=== PATIENT | male | born 1980 | race Caucasian/White ===

== ENCOUNTER 2017-11-08 12:57 | Emergency (ER) | payer OTHER ==
[~2017-11-08] VITALS: Ht 182.9 cm; Wt 90.7 kg
[~2017-11-08 12:57] MED LIST: ACET325 PO; ACET500 PO; ALBU90OI; ALBU90OI INH; ALBU90OI6 INH; ALBU90OI61 INH; BENZ100A PO; Budeprion Sr150 MG PO; CEFU250 PO; CEPH500 PO; CLIN150 PO; CLIN300; CLIN300 PO; CLOM50A; CLON2; CRUTCH3 USE; CYCL10 PO; DIAZ10 PO; DIAZ5 PO; DOXY100 PO; ERYT.5TO LEFTEYE; ERYT500 PO; FLUC150A PO; FLUO10; GABA300 PO; GLIP10ER; GLIP5ER; GLYB5 PO; HYDACE5 PO; HYDHCL10 PO; IBUP200 PO; IBUP400 PO; IBUP600 PO; IBUP800 PO; INSUASPI SC; INSULANPEN SC; LAMO25; LAVAP17G PO; LIDO5TP TOP; LISI10; LISI20 PO; LISI5 PO; LITH300C PO; Lotrimin Ultra12 GM EXT; MECL12.5 PO; META800 PO; METF500; METF500 PO; METF500C PO; METH10; METH5; NAPR500 PO; NAPR550 PO; Norco 5-325 Ta1 EACH PO; OMEP20ER; OXYACE5T PO; OXYC5; PALI3TAB PO; PALI6TA PO; PARO20; PRED10 PO; PRED20 PO; PROC10; PROC5 PO; PROM25 PO; Prinivil10 MG PO; QUET100; QUET200 PO; ROPI.25 PO; RXCLIN PO; RXCODGUASY PO; Robaxin500 MG PO; SUBOXONE 8 MG-1 EACH SL; SULTRIDS PO; SYMBYAX; TRAM50 PO; ZIPR40
[2017-11-08] MEDS ORDERED: IBUP600 PO (14:50)
== END 2017-11-08 15:00 | disposition home or self-care (01) ==
LOC: ER 12:57
DX: M25.512 Pain in left shoulder (principal); Z88.0 Allergy status to penicillin; Z88.8 Allergy status to other drugs, medicaments and biological substances; Z88.5 Allergy status to narcotic agent; Z79.899 Other long term (current) drug therapy; Z79.4 Long term (current) use of insulin; F32.9 Major depressive disorder, single episode, unspecified; F31.9 Bipolar disorder, unspecified; E11.9 Type 2 diabetes mellitus without complications; I10 Essential (primary) hypertension; F17.200 Nicotine dependence, unspecified, uncomplicated
CPT/HCPCS: 99282

== ENCOUNTER 2017-11-17 12:11 | Emergency (ER) | payer OTHER ==
[~2017-11-17] VITALS: Ht 185.4 cm; Wt 90.7 kg
[2017-11-17] MEDS ORDERED: IBUP600 PO (13:04)
== END 2017-11-17 13:09 | disposition home or self-care (01) ==
LOC: ER 12:11
DX: S83.92XA Sprain of unspecified site of left knee, initial encounter (principal); V89.2XXA Person injured in unspecified motor-vehicle accident, traffic, initial encounter; Z88.0 Allergy status to penicillin; Z88.8 Allergy status to other drugs, medicaments and biological substances; Z88.5 Allergy status to narcotic agent; Z79.899 Other long term (current) drug therapy; Z79.4 Long term (current) use of insulin; F32.9 Major depressive disorder, single episode, unspecified; F31.81 Bipolar II disorder; E11.9 Type 2 diabetes mellitus without complications; I10 Essential (primary) hypertension; F17.200 Nicotine dependence, unspecified, uncomplicated
CPT/HCPCS: 73564; 99283

== ENCOUNTER 2017-12-15 23:36 | Emergency (ER) | payer OTHER ==
[~2017-12-15] VITALS: Ht 182.9 cm; Wt 88.5 kg
[2017-12-15] MEDS ORDERED: METF500 PO (23:55)
[2017-12-16] MEDS ORDERED: Bactrim Ds Tab1 EACH PO (01:05)
[2017-12-16] MEDS ORDERED: IBUP800 PO (01:05)
== END 2017-12-16 01:31 | disposition home or self-care (01) ==
LOC: ER 23:36
DX: S61.411A Laceration without foreign body of right hand, initial encounter (principal); W26.8XXA Contact with other sharp object(s), not elsewhere classified, initial encounter; Z88.0 Allergy status to penicillin; Z88.8 Allergy status to other drugs, medicaments and biological substances; Z88.5 Allergy status to narcotic agent; Z79.899 Other long term (current) drug therapy; Z79.84 Long term (current) use of oral hypoglycemic drugs; F32.9 Major depressive disorder, single episode, unspecified; F31.9 Bipolar disorder, unspecified; E11.9 Type 2 diabetes mellitus without complications; I10 Essential (primary) hypertension; F17.210 Nicotine dependence, cigarettes, uncomplicated
CPT/HCPCS: 73100; 73130; 90714

== ENCOUNTER 2018-02-16 13:32 | Emergency (ER) | payer OTHER ==
[~2018-02-16] VITALS: Ht 182.9 cm; Wt 93.0 kg
[~2018-02-16 13:32] MED LIST changes: +Bactrim Ds Tab1 EACH PO
[2018-02-16] MEDS ORDERED: METH40 PO (13:36)
[2018-02-16] MEDS ORDERED: IBUP800 PO (13:51)
== END 2018-02-16 14:16 | disposition home or self-care (01) ==
LOC: ER 13:32
DX: S90.822A Blister (nonthermal), left foot, initial encounter (principal); S90.821A Blister (nonthermal), right foot, initial encounter; X58.XXXA Exposure to other specified factors, initial encounter; Z88.0 Allergy status to penicillin; Z88.8 Allergy status to other drugs, medicaments and biological substances; Z88.5 Allergy status to narcotic agent; F32.9 Major depressive disorder, single episode, unspecified; F31.9 Bipolar disorder, unspecified; E11.9 Type 2 diabetes mellitus without complications; I10 Essential (primary) hypertension; Z79.84 Long term (current) use of oral hypoglycemic drugs; Z79.899 Other long term (current) drug therapy; F17.210 Nicotine dependence, cigarettes, uncomplicated
CPT/HCPCS: 99283

== ENCOUNTER 2018-03-08 19:10 | Emergency (ER) | payer OTHER ==
[~2018-03-08] VITALS: Ht 182.9 cm; Wt 93.0 kg
[~2018-03-08 19:10] MED LIST changes: +METH40 PO
[2018-03-08] MEDS ORDERED: LIDO700A20 TOP (20:20)
== END 2018-03-08 20:30 | disposition home or self-care (01) ==
LOC: ER 19:10
DX: L84 Corns and callosities (principal); E11.9 Type 2 diabetes mellitus without complications; Z88.0 Allergy status to penicillin; Z88.8 Allergy status to other drugs, medicaments and biological substances; Z88.5 Allergy status to narcotic agent; Z79.899 Other long term (current) drug therapy; F32.9 Major depressive disorder, single episode, unspecified; F31.9 Bipolar disorder, unspecified; F17.210 Nicotine dependence, cigarettes, uncomplicated
CPT/HCPCS: 99283

== ENCOUNTER → 2018-09-09 | Outpatient (CLI) | payer OTHER ==
[~2018-09-09] MED LIST changes: +Doxycycline Hy100 MG PO; +LIDO700A20 TOP
[2018-09-09 17:09] LABS: U Amphetamine Screen Not Detected; U Barbituate Screen Not Detected; U Benzodiazapine Screen Not Detected; U Buprenorphine Screen Not Detected; U Cannabinoids Screen Not Detected; U Cocaine Screen Not Detected; U Methadone Screen DETECTED; U Methamphetamine Screen Not Detected; U Opiates Screen Not Detected; U Oxycodone Screen Not Detected; U Phencyclidine Screen Not Detected; U Propoxyphene Screen Not Detected
== END | disposition home or self-care (01) ==
LOC: LAB SHORT 15:35 → LAB 15:35
PROVIDERS: Psychiatry & Neurology Psychiatry
DX: Z51.81 Encounter for therapeutic drug level monitoring (principal); Z79.899 Other long term (current) drug therapy

== ENCOUNTER 2018-09-18 15:15 | Emergency (ER) | payer OTHER ==
[~2018-09-18] VITALS: Ht 182.9 cm; Wt 108.9 kg
== END 2018-09-18 17:55 | disposition home or self-care (01) ==
LOC: ER 15:15
DX: J02.9 Acute pharyngitis, unspecified (principal); Z88.0 Allergy status to penicillin; Z88.8 Allergy status to other drugs, medicaments and biological substances; Z88.5 Allergy status to narcotic agent; Z79.899 Other long term (current) drug therapy; F31.9 Bipolar disorder, unspecified; E11.9 Type 2 diabetes mellitus without complications; F17.210 Nicotine dependence, cigarettes, uncomplicated
CPT/HCPCS: 87081; 87430; 99282

== ENCOUNTER 2018-10-06 16:33 | Observation (INO) | payer OTHER ==
[~2018-10-06] VITALS: Ht 182.9 cm; Wt 105.0 kg
[~2018-10-06 16:33] MED LIST changes: -AMPDEX10 PO; -ATOM10 PO; -Methadone In10 MG/ML PO
[2018-10-06] MEDS ORDERED: Methadone In10 MG/ML PO (20:18)
[2018-10-06] MEDS ORDERED: ATOM10 PO (20:19)
[2018-10-06 20:54] LABS: Albumin, Blood 3.4 g/dL (3.4-5.0); Albumin/Globulin Ratio 0.8 (0.8-1.8); Bilirubin, Direct 0.1 mg/dL (0.0-0.3); Bilirubin, Indirect 0.4 mg/dL (0.1-0.7); Bilirubin, Total 0.5 mg/dL (0.1-1.0); Globulin, Blood 4.3 g/dL (2.2-4.0); Total Protein, Blood 7.7 g/dL (6.4-8.2)
[2018-10-06] MEDS ORDERED: AMPDEX10 PO (21:56)
--- NOTE | 2018-10-06 22:30 | NUR ---
2230 ADMIT: PT ARRIVES TO ROOM 219 VIA WC FROM ER ACCOMPANIED BY SON AND TRANSFERS SELF TO BED; PT STEADY ON FEET, DENIES INCREASED PAIN WITH MOVEMENT. PT AND SON ORIENTED TO ROOM, CALL SYSTEM AND SAFETY PRECAUTIONS AND VERBALIZE UNDERSTANDING. CALL LIGHT PLACED IN REACH, PT UP IN ROOM AND BRP.
--- NOTE | 2018-10-06 23:20 | NUR ---
2320: PT OUT TO SMOKE WITH FAMILY, DENIES PAIN, N/V.
--- NOTE | 2018-10-07 11:20 | NUR ---
85 mg METHADONE ORDERED, RECD IN 9 TABS OF 10MG. 5 MG WASTED WITH MONICA KO.
--- NOTE | 2018-10-07 18:23 | NUR ---
SHIFT SUMMARY PATIENT W/O C/O PAIN THIS AFTERNOON. TOLERATED REG DIET FOR LUNCH. FAMILY BROUGHT IN SAUSAGE SANDWICH LATER, WHICH PATIENT TOOK, THEN C/O NAUSEA. ZOFRAN ADM AND NAUSEA RESOLVED. SPOKE W/PATIENT RE: DIET CHOICES. OUT TO SMOKE A FEW TIMES THIS SHIFT. PATIENT TO BE NPO AFTER 2400 FOR NUC MED. NO ACUTE CHANGES.
[2018-10-08 05:30] LABS: BASOPHILS ABSOLUTE AUTO 0.03 K/mm3 (0.00-0.23); BASOPHILS PERCENT AUTO 1 % (0-2); EOSINOPHILS ABSOLUTE AUTO 0.28 K/mm3 (0.00-0.68); EOSINOPHILS PERCENT AUTO 5 % (0-6); Hemoglobin 13.3 g/dL (13.5-17.5); IMMATURE GRAN ABSOLUTE AUTO 0.02 K/mm3 (0.00-0.10); IMMATURE GRAN PERCENT AUTO 0 % (0-1); LYMPHOCYTES PERCENT AUTO 32 % (21-46); MONOCYTES ABSOLUTE AUTO 0.98 K/mm3 (0.16-1.47); MONOCYTES PERCENT AUTO 16 % (4-13); Mean Corpuscular HGB 30.2 pg (26.0-34.0); Mean Corpuscular HGB Conc 31.7 g/dL (31.5-36.5); Mean Platelet Volume 10.9 fL (9.1-12.4); NEUTROPHILS ABSOLUTE AUTO 2.81 K/mm3 (1.96-9.15); NEUTROPHILS PERCENT AUTO 47 % (41-73); Platelet Count 192 K/mm3 (150-400); RDW Coefficient Variation 11.9 % (11.7-14.2); RDW Standard Deviation 41.4 fL (35.1-46.3); Red Blood Cell Count 4.41 M/mm3 (4.30-5.90); White Blood Cell Count 6.02 K/mm3 (4.00-11.30)
[2018-10-08 05:34] LABS: Mean Corpuscular Volume 95 fL (80-100)
[2018-10-08 06:14] LABS: Alanine Aminotransfer (ALT/SGP 42 U/L (12-78); Albumin, Blood 2.9 g/dL (3.4-5.0); Albumin/Globulin Ratio 0.8 (0.8-1.8); Alk Phos 61 U/L (50-136); Anion Gap 6 mmol/L (6-16); Aspartate Aminotrans (AST/SGOT 23 U/L (12-37); Bilirubin, Total 0.5 mg/dL (0.1-1.0); Blood Urea Nitrogen 9 mg/dL (8-24); Bun/Creatinine Ratio 12.6 (12.0-20.0); CO2, Blood 24 mmol/L (21-32); Calcium, Blood 8.2 mg/dL (8.5-10.1); Chloride, Blood 112 mmol/L (98-108); Creatinine, Blood 0.72 mg/dL (0.60-1.20); Globulin, Blood 3.8 g/dL (2.2-4.0); Glomerular Filtration Rate >60 (60-); Glucose, Blood 134 mg/dL (70-99); Potassium, Blood 3.9 mmol/L (3.5-5.5); Sodium, Blood 142 mmol/L (136-145); Total Protein, Blood 6.7 g/dL (6.4-8.2)
--- NOTE | 2018-10-08 07:00 | NUR ---
SUMMARY: ADMIT DAY [address] SPANN. NO ACUTE CHANGES THIS SHIFT, VSS, AFEBRILE. PAIN WELL CONTROLLED WITH 1 MG DILAUDID AND 2 TABS TYLENOL EARLY IN SHIFT. NPO AFTER MIDNIGHT, NO NARCOTICS AFTER 0300. PT SLEPT WELL MOST OF SHIFT, OUT TO SMOKE SEVERAL TIMES. ANTICIPATE HYDASCAN AT 1000. DR. SPANN ROUNDS EARLY ON PT THIS AM.
--- NOTE | 2018-10-08 15:34 | NUR ---
DISCHARGE PT PROVIDED WITH WRITTEN AND VERBAL DISCHARGE INSTRUCTIONS. PT REPORTED UNDERSTANDING. VSS. PT AMBULATED OUTSIDE INDEPEDENTLY.
== END 2018-10-08 15:30 | disposition home or self-care (01) ==
LOC: ER 16:33 → SURS 16:34 → ER 21:20 → SURS 21:20
PROVIDERS: Emergency Medicine; ADMIT Surgery
DX: R10.11 Right upper quadrant pain (principal); F11.20 Opioid dependence, uncomplicated; F31.9 Bipolar disorder, unspecified; F90.9 Attention-deficit hyperactivity disorder, unspecified type; F17.210 Nicotine dependence, cigarettes, uncomplicated; Z86.19 Personal history of other infectious and parasitic diseases; Z23 Encounter for immunization
CPT/HCPCS: 36415; 76705; 78226; 80053; 80076; 83690; 85025; 90686; 96365; 96366; 96375; 96376; 99285-25; A9537; G0008; G0378; J0696; J1170; J2405; J2550; J7030

== ENCOUNTER → 2018-10-06 | Outpatient (CLI) | payer OTHER ==
[~2018-10-06] MED LIST changes: +AMPDEX10 PO; +ATOM10 PO; +Metformin HCl500 MG PO; +Methadone In10 MG/ML PO
[2018-10-06 14:16] LABS: BASOPHILS ABSOLUTE AUTO 0.03 K/mm3 (0.00-0.23); BASOPHILS PERCENT AUTO 0 % (0-2); EOSINOPHILS ABSOLUTE AUTO 0.01 K/mm3 (0.00-0.68); EOSINOPHILS PERCENT AUTO 0 % (0-6); Hematocrit 45.3 % (37.0-53.0); Hemoglobin 15.1 g/dL (13.5-17.5); IMMATURE GRAN ABSOLUTE AUTO 0.05 K/mm3 (0.00-0.10); IMMATURE GRAN PERCENT AUTO 0 % (0-1); LYMPHOCYTES ABSOLUTE AUTO 1.04 K/mm3 (0.84-5.20); LYMPHOCYTES PERCENT AUTO 9 % (21-46); MONOCYTES ABSOLUTE AUTO 1.03 K/mm3 (0.16-1.47); MONOCYTES PERCENT AUTO 9 % (4-13); Mean Corpuscular HGB 30.2 pg (26.0-34.0); Mean Corpuscular HGB Conc 33.3 g/dL (31.5-36.5); Mean Corpuscular Volume 91 fL (80-100); NEUTROPHILS PERCENT AUTO 82 % (41-73); Platelet Count 224 K/mm3 (150-400); RDW Coefficient Variation 12.1 % (11.7-14.2); RDW Standard Deviation 39.8 fL (35.1-46.3); White Blood Cell Count 12.16 K/mm3 (4.00-11.30)
[2018-10-06 15:12] LABS: Anion Gap 3 mmol/L (6-16); Blood Urea Nitrogen 14 mg/dL (8-24); Bun/Creatinine Ratio 16.4 (12.0-20.0); CO2, Blood 27 mmol/L (21-32); Calcium, Blood 8.5 mg/dL (8.5-10.1); Chloride, Blood 106 mmol/L (98-108); Creatinine, Blood 0.85 mg/dL (0.60-1.20); Glomerular Filtration Rate >60 (60-); Glucose, Blood 82 mg/dL (70-99); Potassium, Blood 4.1 mmol/L (3.5-5.5); Sodium, Blood 136 mmol/L (136-145)
== END | disposition home or self-care (01) ==
LOC: LAB SHORT 14:01 → LAB EV 14:01
PROVIDERS: Physician Assistant Surgical
DX: R10.31 Right lower quadrant pain (principal)
CPT/HCPCS: 80048; 85025

== ENCOUNTER 2018-12-08 12:01 | Emergency (ER) | payer OTHER ==
[~2018-12-08] VITALS: Ht 182.9 cm; Wt 104.3 kg
[~2018-12-08 12:01] MED LIST changes: +AMPDEX10 PO; +ATOM10 PO; +Keflex500 MG PO; +Methadone In10 MG/ML PO
== END 2018-12-08 14:14 | disposition home or self-care (01) ==
LOC: ER 12:01
DX: L03.011 Cellulitis of right finger (principal); F31.9 Bipolar disorder, unspecified; E11.9 Type 2 diabetes mellitus without complications; I10 Essential (primary) hypertension; F17.200 Nicotine dependence, unspecified, uncomplicated; Z88.0 Allergy status to penicillin; Z88.5 Allergy status to narcotic agent; Z88.8 Allergy status to other drugs, medicaments and biological substances; Z79.899 Other long term (current) drug therapy; Z86.19 Personal history of other infectious and parasitic diseases
CPT/HCPCS: 26010; 99283-25

== ENCOUNTER 2019-05-25 10:25 | Emergency (ER) | payer OTHER ==
[~2019-05-25] VITALS: Ht 182.9 cm; Wt 106.6 kg
[~2019-05-25 10:25] MED LIST changes: +Vibramycin100 MG PO
== END 2019-05-25 11:07 | disposition home or self-care (01) ==
LOC: ER 10:25
DX: K40.90 Unilateral inguinal hernia, without obstruction or gangrene, not specified as recurrent (principal); E11.9 Type 2 diabetes mellitus without complications; I10 Essential (primary) hypertension; F17.210 Nicotine dependence, cigarettes, uncomplicated; Z88.0 Allergy status to penicillin; Z88.8 Allergy status to other drugs, medicaments and biological substances; Z88.5 Allergy status to narcotic agent; Z79.899 Other long term (current) drug therapy; Z79.84 Long term (current) use of oral hypoglycemic drugs; Z79.891 Long term (current) use of opiate analgesic
CPT/HCPCS: 99283

== ENCOUNTER → 2019-07-17 | Outpatient (CLI) | payer OTHER ==
[2019-07-17 19:05] LABS: U Amphetamine Screen DETECTED; U Barbituate Screen Not Detected; U Benzodiazapine Screen Not Detected; U Buprenorphine Screen Not Detected; U Cannabinoids Screen DETECTED; U Cocaine Screen Not Detected; U Methadone Screen DETECTED; U Methamphetamine Screen Not Detected; U Opiates Screen Not Detected; U Oxycodone Screen Not Detected; U Phencyclidine Screen Not Detected; U Propoxyphene Screen Not Detected
[2019-07-24 01:06] LABS: TRICYCLIC ANTIDEP Negative ng/mL (Cutoff=100)
== END | disposition home or self-care (01) ==
LOC: LAB SHORT 11:42 → LAB 11:42
PROVIDERS: Psychiatry & Neurology Psychiatry
DX: Z51.81 Encounter for therapeutic drug level monitoring (principal); Z79.899 Other long term (current) drug therapy
CPT/HCPCS: G0480; G0481

== ENCOUNTER → 2019-09-19 | Outpatient (CLI) | payer OTHER ==
[2019-09-19 12:13] LABS: BASOPHILS ABSOLUTE AUTO 0.04 K/mm3 (0.00-0.23); BASOPHILS PERCENT AUTO 1 % (0-2); EOSINOPHILS ABSOLUTE AUTO 0.23 K/mm3 (0.00-0.68); EOSINOPHILS PERCENT AUTO 4 % (0-6); Hematocrit 46.5 % (37.0-53.0); Hemoglobin 15.7 g/dL (13.5-17.5); IMMATURE GRAN ABSOLUTE AUTO 0.01 K/mm3 (0.00-0.10); IMMATURE GRAN PERCENT AUTO 0 % (0-1); LYMPHOCYTES ABSOLUTE AUTO 2.45 K/mm3 (0.84-5.20); LYMPHOCYTES PERCENT AUTO 41 % (21-46); MONOCYTES ABSOLUTE AUTO 0.57 K/mm3 (0.16-1.47); MONOCYTES PERCENT AUTO 10 % (4-13); Mean Corpuscular HGB 30.4 pg (26.0-34.0); Mean Corpuscular HGB Conc 33.8 g/dL (31.5-36.5); Mean Corpuscular Volume 90 fL (80-100); Mean Platelet Volume 10.7 fL (9.1-12.4); NEUTROPHILS ABSOLUTE AUTO 2.67 K/mm3 (1.96-9.15); NEUTROPHILS PERCENT AUTO 45 % (41-73); Platelet Count 236 K/mm3 (150-400); RDW Coefficient Variation 12.2 % (11.7-14.2); Red Blood Cell Count 5.16 M/mm3 (4.30-5.90); White Blood Cell Count 5.97 K/mm3 (4.00-11.30)
[2019-09-19 12:25] LABS: Alanine Aminotransfer (ALT/SGP 24 U/L (12-78); Albumin, Blood 4.2 g/dL (3.4-5.0); Albumin/Globulin Ratio 1.2 (0.8-1.8); Alk Phos 75 U/L (40-126); Anion Gap 8 mmol/L (6-16); Aspartate Aminotrans (AST/SGOT 21 U/L (12-37); Bilirubin, Total 0.4 mg/dL (0.1-1.0); Blood Urea Nitrogen 7 mg/dL (8-24); Bun/Creatinine Ratio 7.7 (12.0-20.0); CO2, Blood 26 mmol/L (21-32); Calcium, Blood 8.9 mg/dL (8.5-10.1); Chloride, Blood 104 mmol/L (98-108); Creatinine, Blood 0.91 mg/dL (0.60-1.20); Globulin, Blood 3.4 g/dL (2.2-4.0); Glomerular Filtration Rate >60 (60-); Glucose, Blood 124 mg/dL (70-99); Potassium, Blood 4.5 mmol/L (3.5-5.5); Sodium, Blood 138 mmol/L (136-145); Total Protein, Blood 7.6 g/dL (6.4-8.2)
== END | disposition home or self-care (01) ==
LOC: LAB EV 12:09 → LAB SHORT 12:09
PROVIDERS: Physician Assistant Medical
DX: R10.30 Lower abdominal pain, unspecified (principal)
CPT/HCPCS: 80053; 85025

== ENCOUNTER 2020-03-16 14:27 | Emergency (ER) | payer OTHER ==
[~2020-03-16] VITALS: Ht 182.9 cm; Wt 109.8 kg
[~2020-03-16 14:27] MED LIST changes: +Augmentin 875-1 EACH PO
[2020-03-16 15:02] LABS: BASOPHILS ABSOLUTE AUTO 0.04 K/mm3 (0.00-0.23); BASOPHILS PERCENT AUTO 1 % (0-2); EOSINOPHILS ABSOLUTE AUTO 0.25 K/mm3 (0.00-0.68); EOSINOPHILS PERCENT AUTO 3 % (0-6); Hematocrit 51.4 % (37.0-53.0); Hemoglobin 16.8 g/dL (13.5-17.5); IMMATURE GRAN ABSOLUTE AUTO 0.02 K/mm3 (0.00-0.10); IMMATURE GRAN PERCENT AUTO 0 % (0-1); LYMPHOCYTES ABSOLUTE AUTO 3.23 K/mm3 (0.84-5.20); LYMPHOCYTES PERCENT AUTO 41 % (21-46); MONOCYTES ABSOLUTE AUTO 0.87 K/mm3 (0.16-1.47); MONOCYTES PERCENT AUTO 11 % (4-13); Mean Corpuscular HGB 29.8 pg (26.0-34.0); Mean Corpuscular HGB Conc 32.7 g/dL (31.5-36.5); Mean Corpuscular Volume 91 fL (80-100); Mean Platelet Volume 11.9 fL (9.1-12.4); NEUTROPHILS ABSOLUTE AUTO 3.43 K/mm3 (1.96-9.15); NEUTROPHILS PERCENT AUTO 44 % (41-73); Platelet Count 245 K/mm3 (150-400); RDW Coefficient Variation 12.2 % (11.7-14.2); RDW Standard Deviation 41.1 fL (35.1-46.3); Red Blood Cell Count 5.63 M/mm3 (4.30-5.90); White Blood Cell Count 7.84 K/mm3 (4.00-11.30)
[2020-03-16 15:18] LABS: Alanine Aminotransfer (ALT/SGP 33 U/L (12-78); Albumin, Blood 4.3 g/dL (3.4-5.0); Albumin/Globulin Ratio 1.2 (0.8-1.8); Alk Phos 73 U/L (50-136); Anion Gap 7 mmol/L (6-16); Aspartate Aminotrans (AST/SGOT 22 U/L (12-37); Bilirubin, Total 0.6 mg/dL (0.1-1.0); Blood Urea Nitrogen 12 mg/dL (8-24); Bun/Creatinine Ratio 11.1 (12.0-20.0); CO2, Blood 24 mmol/L (21-32); Calcium, Blood 9.2 mg/dL (8.5-10.1); Chloride, Blood 109 mmol/L (98-108); Creatinine, Blood 1.08 mg/dL (0.60-1.20); Globulin, Blood 3.7 g/dL (2.2-4.0); Glomerular Filtration Rate >60 (60-); Glucose, Blood 149 mg/dL (70-99); Potassium, Blood 4.1 mmol/L (3.5-5.5); Sodium, Blood 140 mmol/L (136-145)
[2020-03-16 15:26] LABS: Source, Urine Clean Catch
[2020-03-16 15:33] LABS: Bilirubin, Urine Neg (Neg); Blood, Urine 4+ (Neg); Glucose Qualitative, Urine Neg (Neg); Ketones, Urine Neg (Neg); Leukocyte Esterase, Urine 1+ (Neg); Nitrite, Urine Neg (Neg); Protein, Urine 1+ (Neg); Urobilinogen, Urine NORM (Normal)
[2020-03-16 15:36] LABS: Appearance, Urine Hazy (Clear); Color, Urine Yellow (P-Yellow)
[2020-03-16 15:42] LABS: Bacteria Mod /hpf; Mucus Mod (0-Heavy); Squamous Epithelial Cells Few /hpf (Few); Trichomonas Rare /hpf
[2020-03-16] MEDS ORDERED: ONDA4ODT MM (17:07)
[2020-03-16] MEDS ORDERED: Flagyl500 MG PO (17:07)
[2020-03-16] MEDS ORDERED: Percocet 5-3251 EACH PO (17:07)
== END 2020-03-16 17:16 | disposition home or self-care (01) ==
LOC: ER 14:27
PROVIDERS: Physician Assistant
DX: N20.0 Calculus of kidney (principal); A59.00 Urogenital trichomoniasis, unspecified; F31.81 Bipolar II disorder; I10 Essential (primary) hypertension; E11.9 Type 2 diabetes mellitus without complications; F17.210 Nicotine dependence, cigarettes, uncomplicated; Z88.0 Allergy status to penicillin; Z88.8 Allergy status to other drugs, medicaments and biological substances; Z88.5 Allergy status to narcotic agent; Z87.442 Personal history of urinary calculi; Z79.899 Other long term (current) drug therapy
CPT/HCPCS: 36415; 76770; 80053; 81001; 83690; 85025; 87086; 93005; 93010; 96361; 96374; 96375; 99284-25; A9270-GY; J1170; J1885; J2405

== ENCOUNTER 2020-06-05 06:27 | Emergency (ER) | payer OTHER ==
[~2020-06-05] VITALS: Ht 182.9 cm; Wt 111.1 kg
[~2020-06-05 06:27] MED LIST changes: +Flagyl500 MG PO; +ONDA4ODT MM; +Percocet 5-3251 EACH PO
[2020-06-05 07:04] LABS: BASOPHILS ABSOLUTE AUTO 0.06 K/mm3 (0.00-0.23); BASOPHILS PERCENT AUTO 1 % (0-2); EOSINOPHILS ABSOLUTE AUTO 0.21 K/mm3 (0.00-0.68); EOSINOPHILS PERCENT AUTO 3 % (0-6); Hematocrit 47.5 % (37.0-53.0); Hemoglobin 15.2 g/dL (13.5-17.5); IMMATURE GRAN ABSOLUTE AUTO 0.02 K/mm3 (0.00-0.10); IMMATURE GRAN PERCENT AUTO 0 % (0-1); LYMPHOCYTES ABSOLUTE AUTO 2.64 K/mm3 (0.84-5.20); LYMPHOCYTES PERCENT AUTO 36 % (21-46); MONOCYTES ABSOLUTE AUTO 0.87 K/mm3 (0.16-1.47); MONOCYTES PERCENT AUTO 12 % (4-13); Mean Corpuscular HGB 29.7 pg (26.0-34.0); Mean Corpuscular Volume 93 fL (80-100); Mean Platelet Volume 11.4 fL (9.1-12.4); NEUTROPHILS ABSOLUTE AUTO 3.54 K/mm3 (1.96-9.15); NEUTROPHILS PERCENT AUTO 48 % (41-73); Platelet Count 242 K/mm3 (150-400); RDW Coefficient Variation 12.4 % (11.7-14.2); RDW Standard Deviation 42.8 fL (35.1-46.3); Red Blood Cell Count 5.12 M/mm3 (4.30-5.90); White Blood Cell Count 7.34 K/mm3 (4.00-11.30)
[2020-06-05 07:07] LABS: Source, Urine Clean Catch
[2020-06-05 07:12] LABS: Appearance, Urine Clear (Clear); Bilirubin, Urine Neg (Neg); Blood, Urine 5+ (Neg); Color, Urine Yellow (P-Yellow); Glucose Qualitative, Urine 3+ (Neg); Ketones, Urine 1+ (Neg); Leukocyte Esterase, Urine 1+ (Neg); Nitrite, Urine Neg (Neg); Protein, Urine 2+ (Neg); Specific Gravity, Urine 1.025 (1.003-1.022); Urobilinogen, Urine NORM (Normal)
[2020-06-05 07:20] LABS: Alanine Aminotransfer (ALT/SGP 29 U/L (12-78); Albumin/Globulin Ratio 1.1 (0.8-1.8); Alk Phos 78 U/L (50-136); Anion Gap 7 mmol/L (6-16); Aspartate Aminotrans (AST/SGOT 17 U/L (12-37); Bilirubin, Total 0.3 mg/dL (0.1-1.0); Blood Urea Nitrogen 13 mg/dL (8-24); Bun/Creatinine Ratio 13.7 (12.0-20.0); CO2, Blood 26 mmol/L (21-32); Chloride, Blood 108 mmol/L (98-108); Creatinine, Blood 0.95 mg/dL (0.60-1.20); Globulin, Blood 3.5 g/dL (2.2-4.0); Glomerular Filtration Rate >60 (60-); Glucose, Blood 223 mg/dL (70-99); Potassium, Blood 3.8 mmol/L (3.5-5.5); Sodium, Blood 141 mmol/L (136-145); Total Protein, Blood 7.5 g/dL (6.4-8.2)
[2020-06-05] MEDS ORDERED: Flomax0.4 MG PO (07:21)
[2020-06-05 07:23] LABS: Bacteria Few /hpf; Mucus Mod (0-Heavy); Red Blood Cells, Urine TNTC /hpf (0-2); Squamous Epithelial Cells Rare /hpf (Few)
[2020-06-05 07:24] LABS: Calcium Oxalate Crystals Many /hpf
[2020-06-05] MEDS ORDERED: TAMS.4ER PO (09:09)
[2020-06-05] MEDS ORDERED: Percocet 5-3251 EACH PO (09:09)
== END 2020-06-05 09:29 | disposition home or self-care (01) ==
LOC: ER 06:27
PROVIDERS: Emergency Medicine
DX: N13.2 Hydronephrosis with renal and ureteral calculous obstruction (principal); R91.1 Solitary pulmonary nodule; F31.81 Bipolar II disorder; I10 Essential (primary) hypertension; E11.9 Type 2 diabetes mellitus without complications; F17.210 Nicotine dependence, cigarettes, uncomplicated; Z88.0 Allergy status to penicillin; Z88.8 Allergy status to other drugs, medicaments and biological substances; Z88.5 Allergy status to narcotic agent; Z79.899 Other long term (current) drug therapy
CPT/HCPCS: 36415; 74177; 80053; 81001; 83690; 85025; 87086; 96361; 96374; 96375; 99284-25; J1885; J2405; J3010; J7030; Q9967

== ENCOUNTER 2020-09-16 18:51 | Emergency (ER) | payer OTHER ==
[~2020-09-16] VITALS: Ht 182.9 cm; Wt 111.1 kg
[~2020-09-16 18:51] MED LIST changes: +Flomax0.4 MG PO; +TAMS.4ER PO
[2020-09-16] MEDS ORDERED: Percocet 5-3251 EACH PO (19:56)
[2020-09-16] MEDS ORDERED: PEPCID40 MG PO (19:57)
== END 2020-09-16 20:04 | disposition home or self-care (01) ==
LOC: ER 18:51
DX: K08.89 Other specified disorders of teeth and supporting structures (principal); E11.9 Type 2 diabetes mellitus without complications; I10 Essential (primary) hypertension; F17.210 Nicotine dependence, cigarettes, uncomplicated; Z79.899 Other long term (current) drug therapy; Z88.0 Allergy status to penicillin; Z88.8 Allergy status to other drugs, medicaments and biological substances; Z88.5 Allergy status to narcotic agent
CPT/HCPCS: 99282; A9270

== ENCOUNTER → 2020-10-15 | Outpatient (CLI) | payer OTHER ==
[~2020-10-15] MED LIST changes: +PEPCID40 MG PO
== END | disposition home or self-care (01) ==
LOC: LAB SHORT 12:30 → PLD 12:30
DX: N39.0 Urinary tract infection, site not specified (principal)
CPT/HCPCS: 87086

== ENCOUNTER → 2020-11-15 | Outpatient (CLI) | payer OTHER ==
[2020-11-15 17:58] LABS: BASOPHILS ABSOLUTE AUTO 0.07 K/mm3 (0.00-0.23); BASOPHILS PERCENT AUTO 1 % (0-2); EOSINOPHILS ABSOLUTE AUTO 0.29 K/mm3 (0.00-0.68); EOSINOPHILS PERCENT AUTO 4 % (0-6); Hematocrit 47.6 % (37.0-53.0); Hemoglobin 16.1 g/dL (13.5-17.5); IMMATURE GRAN ABSOLUTE AUTO 0.01 K/mm3 (0.00-0.10); IMMATURE GRAN PERCENT AUTO 0 % (0-1); LYMPHOCYTES ABSOLUTE AUTO 2.54 K/mm3 (0.84-5.20); LYMPHOCYTES PERCENT AUTO 31 % (21-46); MONOCYTES ABSOLUTE AUTO 0.69 K/mm3 (0.16-1.47); MONOCYTES PERCENT AUTO 8 % (4-13); Mean Corpuscular HGB 30.4 pg (26.0-34.0); Mean Corpuscular HGB Conc 33.8 g/dL (31.5-36.5); Mean Corpuscular Volume 90 fL (80-100); Mean Platelet Volume 11.3 fL (9.1-12.4); NEUTROPHILS ABSOLUTE AUTO 4.64 K/mm3 (1.96-9.15); NEUTROPHILS PERCENT AUTO 56 % (41-73); Platelet Count 243 K/mm3 (150-400); RDW Standard Deviation 42.7 fL (35.1-46.3); Red Blood Cell Count 5.29 M/mm3 (4.30-5.90); White Blood Cell Count 8.24 K/mm3 (4.00-11.30)
[2020-11-15 18:53] LABS: Alanine Aminotransfer (ALT/SGP 29 U/L (12-78); Albumin, Blood 3.9 g/dL (3.4-5.0); Alk Phos 81 U/L (50-136); Anion Gap 4 mmol/L (6-16); Aspartate Aminotrans (AST/SGOT 15 U/L (12-37); Bilirubin, Total 0.3 mg/dL (0.1-1.0); Blood Urea Nitrogen 10 mg/dL (8-24); Bun/Creatinine Ratio 10.1 (12.0-20.0); CO2, Blood 24 mmol/L (21-32); Chloride, Blood 109 mmol/L (98-108); Glomerular Filtration Rate >60 (60-); Glucose, Blood 130 mg/dL (70-99); Potassium, Blood 4.1 mmol/L (3.5-5.5); Sodium, Blood 137 mmol/L (136-145); Total Protein, Blood 7.9 g/dL (6.4-8.2)
[2020-11-17 01:06] LABS: CHLAMYDIA TRACHOMATIS, NAA Negative (Negative)
== END | disposition home or self-care (01) ==
LOC: LAB EV 17:53 → LAB SHORT 17:53
PROVIDERS: Chiropractor
DX: R10.9 Unspecified abdominal pain (principal)
CPT/HCPCS: 80053; 85025; 87086; 87491; 87591

== ENCOUNTER 2021-03-31 11:07 | Emergency (ER) | payer OTHER ==
[~2021-03-31] VITALS: Ht 182.9 cm; Wt 102.1 kg
== END 2021-03-31 11:46 | disposition home or self-care (01) ==
LOC: ER 11:07
DX: R51.9 Headache, unspecified (principal); I10 Essential (primary) hypertension; E11.9 Type 2 diabetes mellitus without complications; F17.210 Nicotine dependence, cigarettes, uncomplicated; Z20.822 Contact with and (suspected) exposure to COVID-19; Z88.0 Allergy status to penicillin; Z88.8 Allergy status to other drugs, medicaments and biological substances; Z88.5 Allergy status to narcotic agent; Z79.899 Other long term (current) drug therapy
CPT/HCPCS: 99282

== ENCOUNTER 2021-04-23 18:29 | Emergency (ER) | payer OTHER ==
[~2021-04-23] VITALS: Ht 182.9 cm; Wt 108.9 kg
[2021-04-23 19:01] LABS: BASOPHILS ABSOLUTE AUTO 0.04 K/mm3 (0.00-0.23); BASOPHILS PERCENT AUTO 0 % (0-2); EOSINOPHILS ABSOLUTE AUTO 0.08 K/mm3 (0.00-0.68); EOSINOPHILS PERCENT AUTO 1 % (0-6); Hematocrit 44.9 % (37.0-53.0); Hemoglobin 15.6 g/dL (13.5-17.5); IMMATURE GRAN ABSOLUTE AUTO 0.03 K/mm3 (0.00-0.10); IMMATURE GRAN PERCENT AUTO 0 % (0-1); LYMPHOCYTES ABSOLUTE AUTO 2.35 K/mm3 (0.84-5.20); LYMPHOCYTES PERCENT AUTO 21 % (21-46); MONOCYTES ABSOLUTE AUTO 1.08 K/mm3 (0.16-1.47); MONOCYTES PERCENT AUTO 9 % (4-13); Mean Corpuscular HGB Conc 34.7 g/dL (31.5-36.5); Mean Corpuscular Volume 89 fL (80-100); Mean Platelet Volume 11.2 fL (9.1-12.4); NEUTROPHILS ABSOLUTE AUTO 7.89 K/mm3 (1.96-9.15); NEUTROPHILS PERCENT AUTO 69 % (41-73); Platelet Count 258 K/mm3 (150-400); RDW Coefficient Variation 12.2 % (11.7-14.2); RDW Standard Deviation 39.7 fL (35.1-46.3); Red Blood Cell Count 5.04 M/mm3 (4.30-5.90); White Blood Cell Count 11.47 K/mm3 (4.00-11.30)
[2021-04-23 19:22] LABS: Source, Urine Clean Catch
[2021-04-23 19:25] LABS: Appearance, Urine Hazy (Clear); Bilirubin, Urine Neg (Neg); Blood, Urine 3+ (Neg); Color, Urine Yellow (P-Yellow); Glucose Qualitative, Urine Neg (Neg); Ketones, Urine Neg (Neg); Leukocyte Esterase, Urine 2+ (Neg); Nitrite, Urine Neg (Neg); Protein, Urine 2+ (Neg); Specific Gravity, Urine 1.015 (1.003-1.022); Urobilinogen, Urine NORM (Normal)
[2021-04-23 19:28] LABS: Alanine Aminotransfer (ALT/SGP 34 U/L (12-78); Albumin, Blood 3.9 g/dL (3.4-5.0); Albumin/Globulin Ratio 0.9 (0.8-1.8); Alk Phos 68 U/L (50-136); Anion Gap 6 mmol/L (6-16); Aspartate Aminotrans (AST/SGOT 32 U/L (12-37); Bilirubin, Total 0.7 mg/dL (0.1-1.0); Blood Urea Nitrogen 12 mg/dL (8-24); Bun/Creatinine Ratio 10.3 (12.0-20.0); CO2, Blood 20 mmol/L (21-32); Calcium, Blood 9.5 mg/dL (8.5-10.1); Chloride, Blood 109 mmol/L (98-108); Creatinine, Blood 1.16 mg/dL (0.60-1.20); Globulin, Blood 4.2 g/dL (2.2-4.0); Glomerular Filtration Rate >60 (60-); Glucose, Blood 93 mg/dL (70-99); Potassium, Blood 4.5 mmol/L (3.5-5.5); Sodium, Blood 135 mmol/L (136-145); Total Protein, Blood 8.1 g/dL (6.4-8.2)
[2021-04-23 19:38] LABS: Amorphous Light (0-Heavy); Bacteria Few /hpf; Calcium Oxalate Crystals Mod /hpf; Red Blood Cells, Urine 0-2 /hpf (0-2); Squamous Epithelial Cells Few /hpf (Few)
[2021-04-23 23:15] LABS: SARS-Cov-2 (COVID-19) PCR, MMC NEGATIVE (NEGATIVE)
== END 2021-04-24 00:38 | disposition short-term general hospital (02) ==
LOC: ER 18:29
PROVIDERS: Emergency Medicine; Student in an Organized Health Care Education/Training Program
DX: N13.2 Hydronephrosis with renal and ureteral calculous obstruction (principal); G91.1 Obstructive hydrocephalus; Z20.822 Contact with and (suspected) exposure to COVID-19; E11.9 Type 2 diabetes mellitus without complications; F31.81 Bipolar II disorder; I10 Essential (primary) hypertension; F17.210 Nicotine dependence, cigarettes, uncomplicated; Z88.0 Allergy status to penicillin; Z88.5 Allergy status to narcotic agent; Z88.8 Allergy status to other drugs, medicaments and biological substances; Z79.899 Other long term (current) drug therapy
CPT/HCPCS: 74177; 80053; 81001; 85025; 87086; 96365; 96375; 96376; 99285-25; A9270; J0696; J1170; J2270; J2405; J7030; Q9967; U0004

== ENCOUNTER 2021-11-11 18:46 | Emergency (ER) | payer OTHER ==
[~2021-11-11] VITALS: Ht 182.9 cm; Wt 106.1 kg
[2021-11-11] MEDS ORDERED: Monodox100 MG PO (22:12)
== END 2021-11-11 22:00 | disposition home or self-care (01) ==
LOC: ER 18:46
DX: S61.250A Open bite of right index finger without damage to nail, initial encounter (principal); E11.9 Type 2 diabetes mellitus without complications; I10 Essential (primary) hypertension; F17.210 Nicotine dependence, cigarettes, uncomplicated; Z23 Encounter for immunization; Z87.442 Personal history of urinary calculi; Z88.0 Allergy status to penicillin; Z88.5 Allergy status to narcotic agent; Z88.8 Allergy status to other drugs, medicaments and biological substances; Z79.899 Other long term (current) drug therapy; W55.81XA Bitten by other mammals, initial encounter
CPT/HCPCS: 90375; 90376; 90471; 99283-25; A9270

== ENCOUNTER 2021-11-14 09:21 | Emergency (ER) | payer OTHER ==
[~2021-11-14] VITALS: Ht 182.9 cm; Wt 99.8 kg
[~2021-11-14 09:21] MED LIST changes: +Monodox100 MG PO
== END 2021-11-14 10:08 | disposition home or self-care (01) ==
LOC: ER 09:21
DX: S60.46 Insect bite (nonvenomous) of fingers (principal); E11.9 Type 2 diabetes mellitus without complications; I10 Essential (primary) hypertension; F17.210 Nicotine dependence, cigarettes, uncomplicated; Z88.0 Allergy status to penicillin; Z88.8 Allergy status to other drugs, medicaments and biological substances; Z88.5 Allergy status to narcotic agent; Z79.899 Other long term (current) drug therapy
CPT/HCPCS: 90471

== ENCOUNTER 2021-11-18 23:06 | Emergency (ER) | payer OTHER ==
[~2021-11-18] VITALS: Ht 182.9 cm; Wt 102.1 kg
[2021-11-19] MEDS ORDERED: CLIN300 PO (02:58)
== END 2021-11-19 03:17 | disposition home or self-care (01) ==
LOC: ER 23:06
DX: L03.011 Cellulitis of right finger (principal); E11.9 Type 2 diabetes mellitus without complications; I10 Essential (primary) hypertension; F17.210 Nicotine dependence, cigarettes, uncomplicated; Z88.0 Allergy status to penicillin
CPT/HCPCS: 73130; 99283-25

== ENCOUNTER 2021-12-20 14:21 | Emergency (ER) | payer OTHER ==
[~2021-12-20] VITALS: Ht 182.9 cm; Wt 106.6 kg
[2021-12-20] MEDS ORDERED: METH40 PO (14:48)
== END 2021-12-20 16:24 | disposition home or self-care (01) ==
LOC: ER 14:21
DX: Z76.0 Encounter for issue of repeat prescription (principal); F11.90 Opioid use, unspecified, uncomplicated; F17.210 Nicotine dependence, cigarettes, uncomplicated; I10 Essential (primary) hypertension; E11.9 Type 2 diabetes mellitus without complications; F32.A Depression, unspecified; Z79.899 Other long term (current) drug therapy
CPT/HCPCS: A9270

== ENCOUNTER 2021-12-21 10:40 | Emergency (ER) | payer OTHER ==
[~2021-12-21] VITALS: Ht 182.9 cm; Wt 106.6 kg
== END 2021-12-21 12:17 | disposition home or self-care (01) ==
LOC: ER 10:40
DX: Z76.0 Encounter for issue of repeat prescription (principal); F17.210 Nicotine dependence, cigarettes, uncomplicated; I10 Essential (primary) hypertension; E11.9 Type 2 diabetes mellitus without complications; Z88.0 Allergy status to penicillin; Z88.8 Allergy status to other drugs, medicaments and biological substances; Z79.899 Other long term (current) drug therapy
CPT/HCPCS: A9270

== ENCOUNTER 2023-07-15 16:14 | Emergency (ER) | payer OTHER ==
[~2023-07-15] VITALS: Ht 180.3 cm; Wt 102.1 kg
[2023-07-15 16:29] VITALS: BP 135/100
[2023-07-15 20:39] LABS: BASOPHILS ABSOLUTE AUTO 0.04 K/mm3 (0.00-0.23); BASOPHILS PERCENT AUTO 1 % (0-2); EOSINOPHILS ABSOLUTE AUTO 0.08 K/mm3 (0.00-0.68); EOSINOPHILS PERCENT AUTO 1 % (0-6); Hematocrit 41.5 % (37.0-53.0); Hemoglobin 14.1 g/dL (13.5-17.5); IMMATURE GRAN ABSOLUTE AUTO 0.02 K/mm3 (0.00-0.10); IMMATURE GRAN PERCENT AUTO 0 % (0-1); LYMPHOCYTES ABSOLUTE AUTO 1.82 K/mm3 (0.84-5.20); LYMPHOCYTES PERCENT AUTO 33 % (21-46); MONOCYTES ABSOLUTE AUTO 0.43 K/mm3 (0.16-1.47); MONOCYTES PERCENT AUTO 8 % (4-13); Mean Corpuscular HGB 28.8 pg (26.0-34.0); Mean Corpuscular Volume 85 fL (80-100); Mean Platelet Volume 11.4 fL (9.1-12.4); NEUTROPHILS ABSOLUTE AUTO 3.15 K/mm3 (1.96-9.15); NEUTROPHILS PERCENT AUTO 57 % (41-73); Platelet Count 254 K/mm3 (150-400); RDW Standard Deviation 36.9 fL (35.1-46.3); White Blood Cell Count 5.54 K/mm3 (4.00-11.30)
[2023-07-15 20:58] LABS: Albumin, Blood 3.4 g/dL (3.4-5.0); Albumin/Globulin Ratio 0.8 (0.8-1.8); Bilirubin, Total 0.2 mg/dL (0.1-1.0); Bun/Creatinine Ratio 18.8 (12.0-20.0); Calcium, Blood 8.8 mg/dL (8.5-10.1); Creatinine, Blood 0.69 mg/dL (0.60-1.20); Globulin, Blood 4.1 g/dL (2.2-4.0); Potassium, Blood 4.1 mmol/L (3.5-5.5); Total Protein, Blood 7.5 g/dL (6.4-8.2)
[2023-07-15] MEDS ORDERED: Cleocin HCl150 MG PO (22:05)
== END 2023-07-15 23:11 | disposition home or self-care (01) ==
LOC: ER 16:14
PROVIDERS: Student in an Organized Health Care Education/Training Program
DX: L02.11 Cutaneous abscess of neck (principal); E11.9 Type 2 diabetes mellitus without complications; I10 Essential (primary) hypertension; F31.81 Bipolar II disorder; F17.210 Nicotine dependence, cigarettes, uncomplicated; Z79.899 Other long term (current) drug therapy; Z88.0 Allergy status to penicillin; Z88.5 Allergy status to narcotic agent; Z88.8 Allergy status to other drugs, medicaments and biological substances
CPT/HCPCS: 70491; 80053; 85025; 96365; 96375; 99283-25; A9270; J1885; J3370; Q9967

== ENCOUNTER 2023-07-20 10:39 | Inpatient (IN) | payer OTHER ==
[~2023-07-20] VITALS: Ht 180.3 cm; Wt 101.2 kg
[~2023-07-20 10:39] MED LIST changes: +Cleocin HCl150 MG PO
[2023-07-20 11:41] LABS: BASOPHILS ABSOLUTE AUTO 0.04 K/mm3 (0.00-0.23); BASOPHILS PERCENT AUTO 1 % (0-2); EOSINOPHILS ABSOLUTE AUTO 0.07 K/mm3 (0.00-0.68); EOSINOPHILS PERCENT AUTO 1 % (0-6); Hematocrit 45.9 % (37.0-53.0); Hemoglobin 15.4 g/dL (13.5-17.5); IMMATURE GRAN ABSOLUTE AUTO 0.02 K/mm3 (0.00-0.10); IMMATURE GRAN PERCENT AUTO 0 % (0-1); LYMPHOCYTES ABSOLUTE AUTO 1.17 K/mm3 (0.84-5.20); LYMPHOCYTES PERCENT AUTO 17 % (21-46); MONOCYTES ABSOLUTE AUTO 0.76 K/mm3 (0.16-1.47); MONOCYTES PERCENT AUTO 11 % (4-13); Mean Corpuscular HGB 28.5 pg (26.0-34.0); Mean Corpuscular HGB Conc 33.6 g/dL (31.5-36.5); Mean Corpuscular Volume 85 fL (80-100); Mean Platelet Volume 11.2 fL (9.1-12.4); NEUTROPHILS ABSOLUTE AUTO 4.78 K/mm3 (1.96-9.15); NEUTROPHILS PERCENT AUTO 70 % (41-73); Platelet Count 254 K/mm3 (150-400); RDW Coefficient Variation 12.1 % (11.7-14.2); RDW Standard Deviation 37.2 fL (35.1-46.3); White Blood Cell Count 6.84 K/mm3 (4.00-11.30)
[2023-07-20 12:08] LABS: Albumin, Blood 3.8 g/dL (3.4-5.0); Albumin/Globulin Ratio 0.8 (0.8-1.8); Bilirubin, Total 0.6 mg/dL (0.1-1.0); Bun/Creatinine Ratio 15.1 (12.0-20.0); Calcium, Blood 9.1 mg/dL (8.5-10.1); Creatinine, Blood 0.93 mg/dL (0.60-1.20); Globulin, Blood 4.5 g/dL (2.2-4.0); Potassium, Blood 4.5 mmol/L (3.5-5.5); Total Protein, Blood 8.3 g/dL (6.4-8.2)
[2023-07-20] MEDS ORDERED: Amphetamine Sal20 MG PO (15:57)
[2023-07-20] MEDS ORDERED: Glucophage 500 mg PO (16:15)
[2023-07-20] MEDS ORDERED: QUET100 PO (18:12)
[2023-07-20] MEDS ORDERED: METF500 PO (18:13)
[2023-07-20 21:31] VITALS: BP 168/100
[2023-07-21 05:07] VITALS: BP 124/85
[2023-07-21 06:01] LABS: BASOPHILS ABSOLUTE AUTO 0.03 K/mm3 (0.00-0.23); BASOPHILS PERCENT AUTO 0 % (0-2); EOSINOPHILS ABSOLUTE AUTO 0.16 K/mm3 (0.00-0.68); EOSINOPHILS PERCENT AUTO 2 % (0-6); Hematocrit 39.4 % (37.0-53.0); Hemoglobin 13.1 g/dL (13.5-17.5); IMMATURE GRAN ABSOLUTE AUTO 0.02 K/mm3 (0.00-0.10); IMMATURE GRAN PERCENT AUTO 0 % (0-1); LYMPHOCYTES ABSOLUTE AUTO 2.47 K/mm3 (0.84-5.20); LYMPHOCYTES PERCENT AUTO 31 % (21-46); MONOCYTES ABSOLUTE AUTO 1.14 K/mm3 (0.16-1.47); MONOCYTES PERCENT AUTO 14 % (4-13); Mean Corpuscular HGB 28.4 pg (26.0-34.0); Mean Corpuscular HGB Conc 33.2 g/dL (31.5-36.5); Mean Corpuscular Volume 85 fL (80-100); Mean Platelet Volume 11.1 fL (9.1-12.4); NEUTROPHILS ABSOLUTE AUTO 4.18 K/mm3 (1.96-9.15); NEUTROPHILS PERCENT AUTO 52 % (41-73); Platelet Count 238 K/mm3 (150-400); RDW Coefficient Variation 12.4 % (11.7-14.2); RDW Standard Deviation 37.9 fL (35.1-46.3); Red Blood Cell Count 4.62 M/mm3 (4.30-5.90)
[2023-07-21 06:26] LABS: Bun/Creatinine Ratio 18.4 (12.0-20.0); Calcium, Blood 8.7 mg/dL (8.5-10.1); Creatinine, Blood 0.65 mg/dL (0.60-1.20); Potassium, Blood 3.6 mmol/L (3.5-5.5)
--- NOTE | 2023-07-21 06:52 | NUR ---
Shift Summary Pt admitted from ED with an abcess in the R masticular space. Pt has some redness and swelling on the right side of his face near his jaw which is very painful, pain is well controlled with PRN doses of 15 mg Toradol. Pt is aox4, independent in the room. No other complaints, slept well t/o the night.
[2023-07-21 07:36] VITALS: BP 129/77
--- NOTE | 2023-07-21 15:52 | NUR ---
PT IS A/OX4, PLEASANT AND COOPERATIVE. THE PT IS UP IND IN HIS ROOM. PT APPEARS TO BE BREATHING EASILY WITHOUT OXYGEN. THE PT WAS GIVEN SCHEDULED METHADONE AND STEROIDS THIS AM AND HAS REPORTED PAIN SINCE SO FAR THIS SHIFT. PT HAS BEEN TOLERATING HIS DIET TODAY. CALL LIGHT IN REACH.
[2023-07-21 16:03] VITALS: BP 150/104
[2023-07-21 20:47] VITALS: BP 129/89
[2023-07-22 04:21] VITALS: BP 108/72
--- NOTE | 2023-07-22 06:00 | NUR ---
SHIFT SUMMARY 43 YR M ADMITTED ON 07/20/23 FOR PARODID ABCSESS. FULL CODE. NO ACUTE CHANGES THIS SHIFT. PT STATES THAT HE IS NO LONGER HAVING PAIN AND HE FEELS MUCH BETTER. HE IS INDEPENDANT IN THE ROOM AND IS PLEASANT AND COOPERATIVE WITH CARE. HE SLEPT FOR MOST OF THE NIGHT.
[2023-07-22 07:27] VITALS: BP 115/82
[2023-07-22 17:10] VITALS: BP 152/90
[2023-07-22 18:22] LABS: Vancomycin, Trough 12.3 ug/mL (5.0-10.0)
--- NOTE | 2023-07-22 18:24 | NUR ---
SHIFT SUMMARY PT A/OX4 AND COOPERATIVE OF CARE. PT ABLE TO EXPRESS NEEDS AND CALLS APPROPIATE. PT VSS THROUGHOUT SHIFT WITH O2 SATS IN THE 90'S. NO REPOR TOF CHEST PAIN/PRESSURE. PT INDEPENDENT IN ROOM. PT BLOOD SUGARS ELEVATED, TREATED PER EMAR. NO ACUTE EVENTS DURING SHIFT.
[2023-07-22 20:14] VITALS: BP 143/87
[2023-07-23 03:17] VITALS: BP 102/56
--- NOTE | 2023-07-23 04:36 | NUR ---
SHIFT SUMMARY 54 YR M ADMITTED ON 07/20/23 FOR PARODID ABSCESS. FULL CODE. NO ACUTE CHANGES THIS SHIFT. EVENING BS WAS 308 AND INSULIN WAS GIVEN PER EMAR. PT HAS HAD NO C/O PAIN OR DISCOMFORT THIS SHIFT. INDEPENDANT AND COOPERATIVE W/ CARE.
[2023-07-23 07:27] VITALS: BP 108/75
--- NOTE | 2023-07-23 09:00 | NUR ---
pt laying in bed watching tv, a/ox4, pleasant and cooperative with care, follows commands well, reports some pain, will get scheduled pain meds, he reports its usually only in the am, lungs are clear t/o, resp even and unlabored, no cough noted, hrr, no edema noted, ppp+2, cap refill <3sec, vs stable, afebrile, piv site to rfa site is clear and patent, btx4, abd flat soft nontender, voids without diff, skin c/w/d, maew, miracle, call light in reach.
[2023-07-23 14:48] VITALS: BP 130/97
--- NOTE | 2023-07-23 18:58 | NUR ---
pt has had an uneventful day, hasn't really had pain until this evening, toradol given, no acute changes this shift, call light in reach.
[2023-07-23 21:03] VITALS: BP 162/95
[2023-07-23 21:04] VITALS: BP 162/95
[2023-07-24 04:33] VITALS: BP 122/80
--- NOTE | 2023-07-24 04:38 | NUR ---
1900: ASSUMED CARE OF PT, REPORT RECEIVED FROM DAY SHIFT RN. PT IS FOUND TO BE LAYING IN BED ON HIS BACK WITH HOB ELEVATED, BREATHING IS EVEN AND UNLABORED. PT IS A/O, REPORTS GOOD PAIN CONTROL THROUGHOUT THE SHIFT. VSS. MEDICATIONS PROVIDED ORDERED. PT IS INDEPENDENT IN THE ROOM. SAFETY PRECAUTIONS TAKEN, CALL LIGHT AND BEDSIDE TABLE WITHIN REACH. NEEDS ADDRESSED THROUGHOUT SHIFT.
[2023-07-24 07:21] VITALS: BP 137/94
--- NOTE | 2023-07-24 08:06 | NUR ---
pt laying in bed watching tv, a/ox4, pleasant and cooperative with care, follows commands well, reports a bit of increased pain to right jaw, no increased swelling noted, and reports is swallowing without diff, he feels like worse since off steroids, lungs are clear t/o, resp even and unlabored no cough noted, on r/a, hrr, no edema noted, ppp+2, cap refill <3sec, vs stable, afebrile, piv site to left hand is s.l. clear and patent, btx4, abd flat soft nontender, voids without diff, skin c/w/d, maew, miracle, call light in reach.
[2023-07-24] MEDS ORDERED: DEXA2 PO (10:30)
[2023-07-24] MEDS ORDERED: VISBIOME 112.51 EACH PO (10:32)
[2023-07-24] MEDS ORDERED: LISI5 PO (10:32)
[2023-07-24] MEDS ORDERED: HUMALOG KW100 UNIT/1 SC (10:33)
[2023-07-24] MEDS ORDERED: INSULANI SC (10:35)
[2023-07-24] MEDS ORDERED: LEVO750 PO (10:38)
[2023-07-24] MEDS ORDERED: OMEP20ER PO (10:39)
[2023-07-24] MEDS ORDERED: FLAGYL500 M1 PO (10:39)
[2023-07-24] MEDS ORDERED: SULTRIDS PO (10:40)
--- NOTE | 2023-07-24 13:00 | NUR ---
pt has been discharged to home, went over instructions with him, he verbalized understanding, iv removed intact, new meds faxed to [facility]. left via ambulation with adult high school instructor in attendence with all his belongings.
== END 2023-07-24 13:09 | disposition home or self-care (01) | DRG 638 ==
LOC: ER 10:39 → ERHOLD 16:21 → MEDS 16:21
PROVIDERS: Physician Assistant; ADMIT Internal Medicine
DX: E11.69 Type 2 diabetes mellitus with other specified complication (principal); E87.1 Hypo-osmolality and hyponatremia; K11.3 Abscess of salivary gland; L02.01 Cutaneous abscess of face; L03.211 Cellulitis of face; F11.20 Opioid dependence, uncomplicated; E11.628 Type 2 diabetes mellitus with other skin complications; E11.65 Type 2 diabetes mellitus with hyperglycemia; I10 Essential (primary) hypertension; G47.00 Insomnia, unspecified; F31.9 Bipolar disorder, unspecified; T38.0X5A Adverse effect of glucocorticoids and synthetic analogues, initial encounter; Z88.0 Allergy status to penicillin; Z88.8 Allergy status to other drugs, medicaments and biological substances; Z88.6 Allergy status to analgesic agent; Z86.19 Personal history of other infectious and parasitic diseases; Z86.14 Personal history of Methicillin resistant Staphylococcus aureus infection; Z79.84 Long term (current) use of oral hypoglycemic drugs; Z87.891 Personal history of nicotine dependence
CPT/HCPCS: 36415; 70491; 80048; 80053; 80202; 82947; 85025; 96365; 99285-25; A9270; J0295; J1100; J1650; J1815; J1885; J2543; J3370; J7030; J7050; Q9967

== ENCOUNTER 2025-03-20 07:11 | Day surgery (SDC) | payer OTHER ==
[2025-03-20] VITALS (10 sets, daily range): BP systolic 128–171; BP diastolic 88–117
[~2025-03-20] VITALS: Ht 177.8 cm; Wt 102.1 kg
[~2025-03-20 07:11] MED LIST changes: +AMPDEX10CR PO; +ASPI325 PO; +Amphetamine Sal20 MG PO; +Crestor40 MG PO; +DEXA2 PO; +FLAGYL500 M1 PO; +Glucophage 500 mg PO; +HUMALOG KW100 UNIT/1 SC; +INSULANI SC; +Isosorbide Mono30 MG PO; +LEVO750 PO; +METO25ER PO; +OMEP20ER PO; +QUET100 PO; +VISBIOME 112.51 EACH PO
[2025-03-20] MEDS ORDERED: Verapamil HCL 2.5 MG/ML 2ML Injection ONE (07:28)
[2025-03-20] MEDS ORDERED: Heparin Sodium 1000 Units/ML 10ML MDV ONE (07:28)
[2025-03-20] MEDS ORDERED: NS 250 ML IV ONE (07:29)
[2025-03-20] MEDS ORDERED: NS 1,000 ML IV ONE ×2 (07:29→07:41)
[2025-03-20] MEDS ORDERED: Midazolam HCl 1MG / ML 2ML Vial ONE (07:57)
[2025-03-20] MEDS ORDERED: FentaNYL Citrate 50 MCG/ML 2 ML Injection ONE (07:57)
[2025-03-20] MEDS ORDERED: AMLO10 PO (09:12)
[2025-03-20] MEDS ORDERED: ASPI81CH PO (09:13)
--- NOTE | 2025-03-20 09:46 | NUR ---
REPORT RECEIVED EARLIER, VSS, TR BAND IN PLACE RIGHT RADIAL, GOOD PULSES DISTAL/PROXIMAL, DISCUSSED PLAN AND METHADONE REQUEST, DISCUSSED WITH PROVIDER AND PLAN TO HOLD OFF, HAVE CLINIC DISCUSS THIS WITH PATIENT. DISCHARGE INSTRUCTIONS IN PROGRESS, D/C OTHERWISE PENDING.
--- NOTE | 2025-03-20 09:48 | NUR ---
CALLED PHARMACY EARLIER AND PLACED ORDERS PER PROVIDER FOR MEDICATIONS, UPDATED MED LIST.
--- NOTE | 2025-03-20 10:25 | NUR ---
PATIENT CALLED CLINIC WHO TOLD PATIENT TO JUST ASK PROVIDER FOR DOSE, PATIENT SPOKE WITH PROVIDER AND ORDER PLACED FOR METHADONE 54 MG, SPOKE WITH PHARMACY TO CLARIFY NEED/DOSE, GIVEN 5.4 TABLETS (54 MG) AT PRESENT TIME, VERIFIED BY YAIR FREEMAN RN AND GIVEN BY THIS RN (SEE EMAR). PATIENT DENIES ADDITIONAL NEEDS, EARLIER DISCUSSED D/C INSTRUCTIONS, D/C MEDICATIONS, RADIAL SITE CARE AND WHEN TO CALL/RETURN OR CALL . NO QUESTIONS OR CONCERNS, D/C OTHERWISE PENDING.
--- NOTE | 2025-03-20 11:42 | NUR ---
TR BAND DEFLATED, SITE INTACT, DISCHARGE PENDING.
--- NOTE | 2025-03-20 12:17 | NUR ---
REMOVED TR BAND, CLOTH DOT PLACED, IV REMOVED, PATIENT DRESSED, BELONGINGS RETURNED, TAKEN BY W/C TO FRONT ENTRANCE, LEFT WITH MOTHER AT 1215.
== END 2025-03-20 12:15 | disposition home or self-care (01) ==
LOC: MHTC 07:11
DX: E11.69 Type 2 diabetes mellitus with other specified complication (principal); I20.89 Other forms of angina pectoris; I25.82 Chronic total occlusion of coronary artery; I25.2 Old myocardial infarction; I10 Essential (primary) hypertension; E78.00 Pure hypercholesterolemia, unspecified; F17.210 Nicotine dependence, cigarettes, uncomplicated; Z79.4 Long term (current) use of insulin; Z79.899 Other long term (current) drug therapy; Z88.5 Allergy status to narcotic agent; Z88.8 Allergy status to other drugs, medicaments and biological substances; Z90.49 Acquired absence of other specified parts of digestive tract
CPT/HCPCS: 76937; 82947; 92920; 93454; 99152; 99153; A9270; C1725; C1769; C1887; C1894; J1644; J2250; J3010; J3246; J7030; J7050; Q9967

== ENCOUNTER 2025-03-25 15:45 | Emergency (ER) | payer OTHER ==
[~2025-03-25] VITALS: Ht 180.3 cm; Wt 102.1 kg
[~2025-03-25 15:45] MED LIST changes: +AMLO10 PO; +ASPI81CH PO
[2025-03-25] MEDS ORDERED: NS 1,000 ML IV SCH (17:00)
[2025-03-25] MEDS ORDERED: Morphine Sulfate 4 MG/1 ML Injection IV ONE (17:00)
[2025-03-25] MEDS ORDERED: Ondansetron HCl 2 MG / ML 2ML Vial IV ONE ×2 (17:00→21:50)
[2025-03-25] MEDS ORDERED: Pantoprazole Sodium 40 MG Injection IV ONE (17:05)
[2025-03-25 17:25] LABS: BASOPHILS ABSOLUTE AUTO 0.07 K/mm3 (0.00-0.23); BASOPHILS PERCENT AUTO 1 % (0-2); EOSINOPHILS ABSOLUTE AUTO 0.67 K/mm3 (0.00-0.68); EOSINOPHILS PERCENT AUTO 6 % (0-6); Hematocrit 42.4 % (37.0-53.0); Hemoglobin 14.2 g/dL (13.5-17.5); IMMATURE GRAN ABSOLUTE AUTO 0.03 K/mm3 (0.00-0.10); IMMATURE GRAN PERCENT AUTO 0 % (0-1); LYMPHOCYTES ABSOLUTE AUTO 3.40 K/mm3 (0.84-5.20); LYMPHOCYTES PERCENT AUTO 31 % (21-46); MONOCYTES ABSOLUTE AUTO 0.78 K/mm3 (0.16-1.47); MONOCYTES PERCENT AUTO 7 % (4-13); Mean Corpuscular HGB Conc 33.5 g/dL (31.5-36.5); Mean Corpuscular Volume 84 fL (80-100); NEUTROPHILS ABSOLUTE AUTO 5.89 K/mm3 (1.96-9.15); NEUTROPHILS PERCENT AUTO 54 % (41-73); NRBC ABSOLUTE 0.00 K/mm3 (0.00-0.02); NRBC Auto 0.0 /100 WBC (0.0-0.2); Platelet Count 254 K/mm3 (150-400); RDW Coefficient Variation 12.9 % (11.7-14.2); RDW Standard Deviation 39.1 fL (35.1-46.3)
[2025-03-25 17:37] LABS: Alanine Aminotransfer (ALT/SGP 34.0 U/L (12-78); Albumin, Blood 3.8 g/dL (3.4-5.0); Albumin/Globulin Ratio 1.1 (0.8-1.8); Anion Gap 10.0 mmol/L (3-11); Aspartate Aminotrans (AST/SGOT 19.0 U/L (12-37); Bilirubin, Total 0.5 mg/dL (0.1-1.0); Blood Urea Nitrogen 14.0 mg/dL (8-24); CO2, Blood 22.0 mmol/L (21-32); Calcium, Blood 8.9 mg/dL (8.5-10.1); Chloride, Blood 103.0 mmol/L (98-108); Creatinine, Blood 1.02 mg/dL (0.60-1.20); Globulin, Blood 3.6 g/dL (2.2-4.0); Glucose, Blood 198.0 mg/dL (70-99); Potassium, Blood 3.3 mmol/L (3.5-5.5); Sodium, Blood 132.0 mmol/L (136-145); Total Protein, Blood 7.4 g/dL (6.4-8.2)
[2025-03-25 19:29] LABS: Source, Urine Clean Catch
[2025-03-25 19:48] LABS: Bilirubin, Urine Neg (Neg); Glucose Qualitative, Urine Neg (Neg); Ketones, Urine Neg (Neg); Leukocyte Esterase, Urine Neg (Neg); Protein, Urine Neg (Neg); Specific Gravity, Urine 1.010 (1.003-1.022); Urobilinogen, Urine NORM (Normal)
[2025-03-25 20:07] LABS: Color, Urine Pale Yellow (P-Yellow)
[2025-03-25] MEDS ORDERED: PANT40 PO (21:56)
[2025-03-25] MEDS ORDERED: ONDA4ODT MM (21:56)
[2025-03-25 22:00] VITALS: BP 112/68
== END 2025-03-25 22:30 | disposition home or self-care (01) ==
LOC: ER 15:45
PROVIDERS: Emergency Medicine
DX: R10.33 Periumbilical pain (principal); R79.89 Other specified abnormal findings of blood chemistry; E87.6 Hypokalemia; E87.1 Hypo-osmolality and hyponatremia; E11.9 Type 2 diabetes mellitus without complications; I10 Essential (primary) hypertension; F17.210 Nicotine dependence, cigarettes, uncomplicated; Z88.8 Allergy status to other drugs, medicaments and biological substances; Z88.5 Allergy status to narcotic agent; Z79.4 Long term (current) use of insulin; Z79.82 Long term (current) use of aspirin; Z79.899 Other long term (current) drug therapy
CPT/HCPCS: 80053; 81003; 83605; 83690; 83735; 84484; 85025; 93005; 93010; 96361; 96374; 96375; 96376; 99284-25; A9270; J2405; J2470; J7030